=== PATIENT | female | born 1940 | race Caucasian/White ===

== ENCOUNTER → 2020-11-04 | Outpatient (CLI) | payer MEDICARE, OTHER | LOC: MC.RAD 10-27 10:15 | DX: Z12.31 Encounter for screening mammogram for malignant neoplasm of breast (principal) ==

== ENCOUNTER → 2021-11-14 | Outpatient (CLI) | payer MEDICARE, OTHER | LOC: MC.RAD 10:30 | DX: Z12.31 Encounter for screening mammogram for malignant neoplasm of breast (principal) ==

== ENCOUNTER 2022-01-09 14:06 | Emergency (ER) | payer MEDICARE, OTHER ==
[~2022-01-09] VITALS: Ht 162.6 cm; Wt 54.5 kg
[2022-01-09 14:23] VITALS: BP 142/91; TEMP 98.1
[2022-01-09] MEDS ORDERED: knee scooter (15:20)
[2022-01-09] MEDS ORDERED: NORCO 325 MG-51 TAB PO (15:28)
[2022-01-09 16:28] VITALS: PULSE 72
== END 2022-01-09 16:28 | disposition home or self-care (01) ==
LOC: COL.ER 14:06
DX: S82.61XA Displaced fracture of lateral malleolus of right fibula, initial encounter for closed fracture (principal); W10.9XXA Fall (on) (from) unspecified stairs and steps, initial encounter; X50.1XXA Overexertion from prolonged static or awkward postures, initial encounter; Y93.01 Activity, walking, marching and hiking

== ENCOUNTER 2022-10-09 14:13 | Outpatient (CLI) | payer MEDICARE, OTHER ==
[~2022-10-09] VITALS: Ht 162.6 cm; Wt 50.8 kg
[~2022-10-09 14:13] MED LIST: ASPIRIN 81M81 MG/TA2 PO; CALCIUM; MIRALAX PA17 GM/Dose PO; NORCO 325 MG-51 TAB PO; PLAVIX 75MG TAB75 MG PO; PRINIVIL10 MG PO; ROXICODONE 55 MG/TAB PO; VITAMIN D31000 I1 PO; ZOCOR 20MG20 MG PO; knee scooter
[2022-10-09 14:34] VITALS: BP 144/89; PULSE 88; TEMP 98.4
--- NOTE | 2022-10-09 15:28 | NUR ---
pt discharged at approx 1515. she tolerated her injection well, her VS remained WNL, and she tolerated po fluids before and after injection. she ambulated indpendently to her car following injection and was free from concerns and complaints at time of discharge.
== END 2022-10-09 15:15 | disposition home or self-care (01) ==
LOC: EUO 14:13
DX: S12.190A Other displaced fracture of second cervical vertebra, initial encounter for closed fracture (principal); S22.010A Wedge compression fracture of first thoracic vertebra, initial encounter for closed fracture; S22.030A Wedge compression fracture of third thoracic vertebra, initial encounter for closed fracture; M80.00XA Age-related osteoporosis with current pathological fracture, unspecified site, initial encounter for fracture; X58.XXXA Exposure to other specified factors, initial encounter
CPT/HCPCS: J3111

== ENCOUNTER 2023-03-26 13:32 | Outpatient (RCR) | payer MEDICARE, OTHER ==
[~2023-03-26] VITALS: Ht 162.6 cm; Wt 48.6 kg
[2023-03-26 13:51] VITALS: BP 132/90; PULSE 64; TEMP 98
== END 2023-03-26 14:05 | disposition home or self-care (01) ==
LOC: EUO 13:32
DX: S12.190A Other displaced fracture of second cervical vertebra, initial encounter for closed fracture (principal); S22.010A Wedge compression fracture of first thoracic vertebra, initial encounter for closed fracture; S22.030A Wedge compression fracture of third thoracic vertebra, initial encounter for closed fracture; M84.48XA Pathological fracture, other site, initial encounter for fracture; M80.00XA Age-related osteoporosis with current pathological fracture, unspecified site, initial encounter for fracture
CPT/HCPCS: J3111

== ENCOUNTER 2023-04-23 13:26 | Outpatient (RCR) | payer MEDICARE, OTHER ==
[~2023-04-23] VITALS: Ht 162.6 cm; Wt 49.6 kg
[2023-04-23] MEDS ORDERED: TUMS ULTRA ST1000 MG PO (13:58)
[2023-04-23 14:01] VITALS: BP 134/83; PULSE 81; TEMP 97.6
== END 2023-04-23 14:11 | disposition home or self-care (01) ==
LOC: EUO 13:26
DX: S12.190D Other displaced fracture of second cervical vertebra, subsequent encounter for fracture with routine healing (principal); S22.010D Wedge compression fracture of first thoracic vertebra, subsequent encounter for fracture with routine healing; S22.030D Wedge compression fracture of third thoracic vertebra, subsequent encounter for fracture with routine healing; M80.00XD Age-related osteoporosis with current pathological fracture, unspecified site, subsequent encounter for fracture with routine healing
CPT/HCPCS: J3111

== ENCOUNTER 2023-05-21 13:48 | Outpatient (RCR) | payer MEDICARE, OTHER ==
[~2023-05-21] VITALS: Ht 162.6 cm; Wt 50.0 kg
[~2023-05-21 13:48] MED LIST changes: +TUMS ULTRA ST1000 MG PO
[2023-05-21 14:03] VITALS: BP 153/85; PULSE 82; TEMP 98
--- NOTE | 2023-05-21 14:11 | NUR ---
PT TOLERATED FINAL EVENITY INJECTION WELL AND VS REMAINED WITHIN NORMAL LIMITS. PT AMBULATED TO MAIN LOBBY INDEPENDENTLY AND WAS FREE FROM ACUTE CONCERNS AND COMPLAINTS UPON DISCHARGE.
== END 2023-05-21 14:13 | disposition home or self-care (01) ==
LOC: EUO 13:48
DX: S12.190D Other displaced fracture of second cervical vertebra, subsequent encounter for fracture with routine healing (principal); S22.010D Wedge compression fracture of first thoracic vertebra, subsequent encounter for fracture with routine healing; S22.030D Wedge compression fracture of third thoracic vertebra, subsequent encounter for fracture with routine healing; M80.00XD Age-related osteoporosis with current pathological fracture, unspecified site, subsequent encounter for fracture with routine healing; X58.XXXD Exposure to other specified factors, subsequent encounter
CPT/HCPCS: J3111

== ENCOUNTER → 2024-01-07 | Outpatient (CLI) | payer MEDICARE ==
[~2024-01-07] MED LIST changes: +GENTLE LAXATIVE5 MG PO; +PROLIA60 MG/ML SQ
== END ==
LOC: MC.RAD 10:40
DX: Z12.31 Encounter for screening mammogram for malignant neoplasm of breast (principal)